=== PATIENT | male | born 1965 ===

== ENCOUNTER 2024-07-04 11:15 | Inpatient (IN) | payer OTHER ==
[~2024-07-04] VITALS: Ht 170.2 cm; Wt 68.9 kg
[2024-07-24] MEDS ORDERED: ROSUVASTATIN CAL5 MG PO (13:43)
[2024-07-24] MEDS ORDERED: COZAAR50 MG PO (13:43)
[2024-07-31] MEDS ORDERED: CEFTRIAXONE SODIUM 2,000 MG VIAL ONE (12:47)
[2024-07-31] MEDS ORDERED: METRONIDAZOLE/SODIUM CHLORIDE 500 MG/100 ML PIGGYBACK IV ONE (12:48)
[2024-07-31] MEDS ORDERED: MORPHINE SULFATE 4 MG/ML VIAL IV ONE (14:25)
[2024-07-31] MEDS ORDERED: ENALAPRILAT DIHYDRATE 1.25 MG/ML VIAL IV PRN (15:00)
[2024-07-31] MEDS ORDERED: ONDANSETRON HCL 2 MG/ML VIAL IV PRN (15:15)
[2024-07-31] MEDS ORDERED: RINGERS SOLUTION,LACTATED 1,000 ML IV SCH (15:15)
[2024-07-31] MEDS ORDERED: MORPHINE SULFATE 4 MG/ML CARTRIDGE IV PRN (15:15)
[2024-07-31] MEDS ORDERED: OxyCODONE HCL 5 MG TABLET (ROXICODONE) PO PRN (15:15)
[2024-07-31] MEDS ORDERED: GABAPENTIN 300 MG CAPSULE PO ONE (16:50)
[2024-07-31] MEDS ORDERED: METOCLOPRAMIDE HCL 5 MG/ML VIAL ONE (16:50)
[2024-07-31] MEDS ORDERED: SIMETHICONE 125 MG CAPSULE PO SCH (17:00)
[2024-07-31] MEDS ORDERED: METOCLOPRAMIDE HCL 5 MG/ML VIAL IV SCH (17:00)
[2024-07-31] MEDS ORDERED: CELECOXIB 200 MG CAPSULE PO SCH (17:00)
[2024-07-31] MEDS ORDERED: HYOSCYAMINE SULFATE 0.125 MG TAB.SUBL SL SCH (17:00)
[2024-07-31] MEDS ORDERED: GABAPENTIN 300 MG CAPSULE PO SCH (17:00)
[2024-07-31] MEDS ORDERED: POLYETHYLENE GLYCOL 3350 17 GM BLIST.PACK PO SCH (17:00)
[2024-07-31 18:17] LABS: HEMATOCRIT 42.4 % (39.0-48.0); HEMOGLOBIN 14.2 g/dL (13-16.00); MEAN CELL VOLUME 98.2 fL (80.0-100.00); MEAN CORPUSCULAR HEMOGLOBIN 32.9 pg (27.00-32.0); MEAN CORPUSCULAR HGB CONC 33.5 g/dl (32.0-36.0); PLATELET COUNT 201 K/uL (150-450); RED BLOOD COUNT 4.32 M/uL (4.00-6.00); RED CELL DISTRIBUTION WIDTH 14.3 % (11.5-14.5)
[2024-07-31 20:00] VITALS: BP 155/103; O2SAT 99
[2024-07-31] MEDS ORDERED: ACETAMINOPHEN 500 MG GEL..CAP PO SCH (20:00)
[2024-07-31] MEDS ORDERED: FAMOTIDINE/PF 20 MG/2 ML VIAL IV PUSH SCH (21:00)
[2024-08-01] VITALS: BP 112/72; O2SAT 95
[2024-08-01 07:08] LABS: HEMATOCRIT 37.9 % (39.0-48.0); MEAN CELL VOLUME 96.6 fL (80.0-100.00); MEAN CORPUSCULAR HEMOGLOBIN 33.1 pg (27.00-32.0); MEAN CORPUSCULAR HGB CONC 34.3 g/dl (32.0-36.0); PLATELET COUNT 187 K/uL (150-450); RED BLOOD COUNT 3.93 M/uL (4.00-6.00); RED CELL DISTRIBUTION WIDTH 14.4 % (11.5-14.5)
[2024-08-01 07:44] LABS: ALBUMIN 3.1 gm/dL (3.4-5.0); CREATININE SERUM 1.04 mg/dL (0.70-1.30); GFR 73.87; MAGNESIUM 1.9 mg/dL (1.8-2.4); PHOSPHOROUS 3.3 mg/dL (2.5-4.9); POTASSIUM 4.23 mEq/L (3.5-5.1)
[2024-08-01 08:04] VITALS: BP 131/80; O2SAT 95
[2024-08-01] MEDS ORDERED: LACTULOSE 20 G/30 ML BLIST.PACK PO SCH (09:00)
[2024-08-01] MEDS ORDERED: LOSARTAN POTASSIUM 50 MG TABLET PO SCH (09:00)
[2024-08-01] MEDS ORDERED: LACTOBACILLUS ACIDOPHILUS 1 CAP CAP PO SCH (09:00)
[2024-08-01 15:55] VITALS: BP 155/95; O2SAT 99
[2024-08-01] MEDS ORDERED: PATIENTS OWN MEDICATION (MEDICAMENTO EN PISO) PO SCH (17:00)
[2024-08-01] MEDS ORDERED: ENOXAPARIN SODIUM 40 MG/0.4 ML SYRINGE SUBCUTANEO SCH (17:00)
[2024-08-02 01:07] VITALS: BP 135/76; O2SAT 98
[2024-08-02 06:23] LABS: HEMATOCRIT 37.8 % (39.0-48.0); HEMOGLOBIN 12.9 g/dL (13-16.00); MEAN CELL VOLUME 97.1 fL (80.0-100.00); MEAN CORPUSCULAR HEMOGLOBIN 33.3 pg (27.00-32.0); MEAN CORPUSCULAR HGB CONC 34.3 g/dl (32.0-36.0); PLATELET COUNT 200 K/uL (150-450); RED BLOOD COUNT 3.89 M/uL (4.00-6.00)
[2024-08-02 06:57] LABS: CALCIUM 9.2 mg/dL (8.5-10.1); CREATININE SERUM 1.12 mg/dL (0.70-1.30); GFR 67.82; MAGNESIUM 1.9 mg/dL (1.8-2.4); PHOSPHOROUS 2.3 mg/dL (2.5-4.9); POTASSIUM 4.59 mEq/L (3.5-5.1)
[2024-08-02 08:00] VITALS: BP 150/91; O2SAT 98
[2024-08-02] MEDS ORDERED: ENOXAPARIN SODIUM 40 MG/0.4 ML SYRINGE SUBCUTANEO SCH (09:00)
[2024-08-02] MEDS ORDERED: NAPH,MB-DB/K PH,MBDB 1 PKT PACKET PO NR (10:15)
== END 2024-08-02 13:23 | disposition home or self-care (01) | DRG 330 ==
LOC: O/R 07-31 08:40 → SURH 07-31 12:30
PROVIDERS: Internal Medicine Geriatric Medicine; ADMIT Colon & Rectal Surgery; ATTEND Colon & Rectal Surgery
PROC: 0DBP4ZZ Excision of Rectum, Percutaneous Endoscopic Approach (ICD-10-PCS; 2024-07-31)
PROC: 0DTN4ZZ Resection of Sigmoid Colon, Percutaneous Endoscopic Approach (ICD-10-PCS; principal; 2024-07-31 16:30)
DX: K57.32 Diverticulitis of large intestine without perforation or abscess without bleeding (principal); K92.1 Melena